=== PATIENT | female | born 1955 | race Two or more races ===

== ENCOUNTER 2017-05-20 21:12 | Emergency (ER) | payer BC ==
[~2017-05-20] VITALS: Ht 170.2 cm; Wt 82.6 kg
[2017-05-20] MEDS ORDERED: METRONIDAZOLE500 MG ORAL (22:50)
[2017-05-20] MEDS ORDERED: BENTYL10 MG ORAL (22:50)
[2017-05-20] MEDS ORDERED: METAMUCIL1 PK1 GT (22:50)
[2017-05-20 23:00] VITALS: BP 138/85
--- NOTE | 2017-05-21 07:26 | Emergency Room Report ---
History of Present Illness General Chief Complaint: Abdominal Pain Source: Patient Present Illness HPI Patient 62-year-old female presented after increased abdominal pain. The patient reported having gradual onset of symptoms the past 3 days. Patient prior history of diverticulitis. She denied any fever. She denied any worsening symptoms with ambulation. She denied any diarrhea. Patient reports having increased bloating. The patient had the previous CT imaging the past few months. She denies any dysuria . Patient History Past Medical History: see triage record Now: No Reviewed Nursing Documentation: PMH: Agreed, PSxH: Agreed Nursing Documentation-PMH Hx Hypertension: Yes Hx Pacemaker: No Hx Asthma: No Hx Diabetes: No Hx Cancer: No Hx Gastrointestinal Problems: Yes - diverticulitis Hx Dialysis: No History Of Psychiatric Problem: No Hx Neurological Problems: No Hx Cerebrovascular Accident: No Hx Seizures: No Review of Systems All Other Systems: negative except mentioned in HPI Physical Exam Vital Signs Date Time Temp Pulse Resp B/P (MAP) Pulse Ox O2 Delivery O2 Flow Rate FiO2 05/20/17 21:40 97.9 78 18 138/85 97 Room Air Sp02 EP Interpretation: reviewed, normal General Appearance: normal inspection, well appearing, no apparent distress, alert Head: atraumatic ENT: normal ENT inspection, hearing grossly normal, normal voice Neck: normal inspection, full range of motion, supple, no bony tend Respiratory: normal inspection, lungs clear, normal breath sounds, no respiratory distress, no retraction, no wheezing Cardiovascular #1: regular rate, rhythm, no edema Gastrointestinal: normal inspection, normal bowel sounds, non tender, soft, no guarding, no hernia Genitourinary: no CVA tenderness Musculoskeletal: normal inspection, back normal, normal range of motion Neurologic: normal inspection, alert, oriented x3, responsive, lead applier III-XII nml as tested, speech normal Psychiatric: normal inspection, judgement/insight normal, mood/affect normal Skin: normal inspection, normal color, no rash Medical Decision Making Diagnostic Impression: Primary Impression: Diverticulitis ER Course Patient presented for abdominal pain. Differential diagnoses included ischemic bowel, appendicitis, perforated viscus, abdominal aortic aneurysm, inferior myocardial infarction, viral gastroenteritis. Patient's benign exam and does not appear to require any further imaging or laboratory testing at this time. The patient was given empiric treatment for diverticulitis. The patient does not appear to have evidence of peritonitis this time. She is advised to recheck with her primary care physician in one to 2 days. She is return if she began having worsening pain persistent vomiting or other concerns Last Vital Signs Date Time Temp Pulse Resp B/P (MAP) Pulse Ox O2 Delivery O2 Flow Rate FiO2 05/20/17 23:00 78 18 138/85 97 Room Air 05/20/17 23:00 97.9 Status: improved Disposition: HOME, SELF-CARE Condition: Stable Scripts Psyllium (Metamucil Powder) 575 Gm Powder 1 PKT GT DAILY, #30 PKT Prov: Lenny Espitia 05/20/17 Dicyclomine Hcl* (BENTYL*) 10 Mg Capsule 10 MG ORAL FOUR TIMES A DAY, #20 CAP Prov: Lenny Espitia 05/20/17 Metronidazole* (FLAGYL*) 500 Mg Tablet 500 MG ORAL BID, #14 TAB Prov: Lenny Espitia 05/20/17 Referrals: NOT CHOSEN IPA/,REFERRING (PCP) Patient Instructions: Diverticulitis Lenny Espitia May 21, 2017 07:26
== END 2017-05-20 23:00 | disposition home or self-care (01) ==
LOC: EMR 22:05
DX: K57.32 Diverticulitis of large intestine without perforation or abscess without bleeding (principal); I10 Essential (primary) hypertension
CPT/HCPCS: 99284